=== PATIENT | male | born 1930 | race Two or more races ===

== ENCOUNTER 2017-05-10 14:25 | Inpatient (IN) | payer OTHER, MEDICARE ==
[2017-05-10] VITALS (7 sets, daily range): BP systolic 74–106; BP diastolic 47–67
[~2017-05-10] VITALS: Ht 149.9 cm; Wt 57.8 kg
[~2017-05-10 14:25] MED LIST: ACETAMINOPHEN650 M7 PO; ADULT LOW DOSE81 MG PO; ADVAIR HFA 45-218 GM IH; ALEVE220 M2 PO; ALEVE220 MG PO; ALLERGY ME12.5 MG/1 PO; AMBIEN10 M1 PO; ANALGESIC BALM28 GM PO; ANTIFUNGAL CRE141 GM TP; ASMANEX TW200 MICRO1 IH; ASPIR 8181 M1 PO; ASPIRIN E.C.81 M1 PO; ATACAND16 MG PO; ATACAND32 MG PO; ATACAND8 MG PO; Aldactone PO; Aspirin E.C. PO; CALCIUM ANTAC1000 MG PO; CALCIUM600 MG PO; CATAPRES0.1 MG PO; CENTRUM CARD1 TABLET PO; CENTRUM MEN'S1 EACH PO; CENTRUM MULTIV1 EACH PO; CHERATUSSIN AC473 ML PO; CORTISONE57 GM TP; COUMADIN,JANTOVE4 MG PO; COUMADIN4 MG PO; COUMADIN5 MG PO; CRESTOR5 MG PO; Catapres PO; Cortaid,Hytone 1% Cr TP; DIGOXIN250 MCG PO; EMS NITROSTAT0.4 M1 S; EMS NITROSTAT0.4 M1 SL; EMS NITROSTAT0.4 MG PO; FINASTERIDE5 MG PO; FISH OIL 1,0001 EAC7 PO; FISH OIL 1,0001 EACH PO; FISH OIL CONC1 EACH PO; FLONASE16 G1 BOTH NARES; FOLGARD1 TABLET PO; HYDROCHLOROTHIA25 MG PO; Hydrodiuril,Oretic,E PO; K-DUR20 MEQ PO; LANOXIN,DIGIT0.25 MG PO; LASIX10 MG PO; LASIX20 MG PO; LASIX20 MG/2 ML IV; LASIX40 MG PO; LIPITOR10 MG PO; LIPITOR5 MG PO; LO-DOSE ASPIRIN81 M1 PO; METAMUCIL PACKE1 PKT PO; METAMUCIL POWD822 G1 PO; METAMUCIL0.52 GM PO; METAMUCIL1 EACH PO; METOPROLOL SUC100 MG PO; Metamucil Capsule PO; Mitrazol 2% Cream TP; NEURONTIN100 MG PO; NEXIUM40 MG PO; NITROSTAT,NITR0.4 M1 SL; NITROSTAT0.4 MG SL; NORVASC2.5 MG PO; NORVASC5 MG PO; Omega III EPA + DHA PO; PREVACID30 MG PO; ROBITUSSIN AC,T10 ML PO; Robitussin AC,Tussi- PO; SINGULAIR10 MG PO; STOOL SOFTENER100 M1 PO; SYMBICORT60 INHALAT IH; TEKTURNA150 MG PO; TOPROL XL100 MG PO; TOPROL XL50 MG PO; TYLENOL 8 HOUR650 MG PO; TYLENOL325 M1 PO; Toprol XL PO; Tums,OsCal PO; VIRTUSSIN AC L473 ML PO; VITAMIN D2000 UNI1 PO; VITAMIN D31000 UNI2 PO; Vitamin D PO; WARFARIN PO; WARFARIN SODIUM5 MG PO; XOPENEX HF200 INHALA IH
[2017-05-10 15:14] LABS: HEMATOCRIT 19.2 % (38.0-50.0); MCHC 31.8 G/DL (30.0-36.0); MCV 91.4 FL (86-99); MEAN PLAT.VOLUME 10.9 uM^3 (9.0-12.4); PLATELET COUNT 199 K/uL (156-360); RBC DIS.WIDTH-CV 16.1 % (11.8-14.6); RBC DIS.WIDTH-SD 53.3 % (39-53); WHITE BLOOD COUNT 11.3 K/uL (4.1-10.2)
[2017-05-10 15:17] LABS: CHLORIDE 99 mEq/L (99-109); POTASSIUM 4.4 mEq/L (3.7-5.4); SODIUM 131 mEq/L (136-147)
[2017-05-10 15:19] LABS: GLUCOSE 139 mg/dL (70-99)
[2017-05-10 15:20] LABS: ANION GAP 15 MEQ/L (2-14)
[2017-05-10 15:23] LABS: GFR ESTIMATE (CALCULATED) 56 mL/min/ (58.99-99999)
[2017-05-10 15:24] LABS: UREA NITROGEN (BUN) 44 mg/dL (9-23)
[2017-05-10 15:29] LABS: TROP-I INTERPRETATION NEGATIVE; TROPONIN-I 0.08 ng/mL (0.0-0.30)
[2017-05-10 17:00] LABS: PTT 51.7 SEC (25-37)
[2017-05-10 17:04] LABS: PROTHROMBIN TIME 149.8 SEC (10.2-12.9)
[2017-05-10 17:05] LABS: INTER. NORMALIZED RATIO 13.1
[2017-05-10] MEDS ORDERED: METOPROLOL SUCC50 MG PO (18:37)
[2017-05-10] MEDS ORDERED: CODEINE-GUAIFE120 ML PO (18:39)
[2017-05-10] MEDS ORDERED: MONTELUKAST SOD10 MG PO (18:39)
[2017-05-10] MEDS ORDERED: WARFARIN SODIUM2 MG PO (18:39)
[2017-05-10] MEDS ORDERED: LEVOTHYROXINE25 MCG PO (18:40)
[2017-05-10] MEDS ORDERED: TORSEMIDE20 MG PO (18:41)
[2017-05-10 23:49] LABS: ADD MIUA? YES; BILIRUBIN NEGATIVE; BLOOD SMALL; COLOR YELLOW ((YELLOW)); GLUCOSE (STRIP) NEGATIVE; KETONES NEGATIVE; LEUKOCYTES NEGATIVE; NITRITE NEGATIVE; PROTEIN (STRIP) 30; SPECIFIC GRAVITY 1.012 (1.000-1.030); UROBILINOGEN 0.2 MG/DL (0.2-1.0)
[2017-05-11] VITALS (37 sets, daily range): BP systolic 56–135; BP diastolic 33–90
[2017-05-11 00:05] LABS: EPITHELIAL CELLS RARE /HPF; RED BLOOD CELLS 0-5 /HPF (0-5); WHITE BLOOD CELLS 0-5 /HPF (0-5)
[2017-05-11 00:06] LABS: BACTERIA NONE SEEN /HPF; HYALINE CASTS 15-20 /LPF; MUCUS TRACE /LPF; UCUL ADDED? NO
[2017-05-11 00:08] LABS: CREATININE 1.6 mg/dL (0.6-1.3)
[2017-05-11 00:31] LABS: TOTAL BILIRUBIN 1.2 mg/dL (0.0-1.0)
[2017-05-11 00:32] LABS: ALKALINE PHOSPHATASE 89 IU/L (3-129)
[2017-05-11 00:35] LABS: DIRECT BILIRUBIN 0.7 mg/dL (0.0-0.3)
[2017-05-11 02:32] LABS: HEMATOCRIT 24.5 % (38.0-50.0); MCH 30.9 PG (29.0-34.0); MCHC 32.2 G/DL (30.0-36.0); NRBC (%) 11.6 /100 WBC (0-0); RBC DIS.WIDTH-CV 15.8 % (11.8-14.6); RBC DIS.WIDTH-SD 54.4 % (39-53); WHITE BLOOD COUNT 9.6 K/uL (4.1-10.2)
[2017-05-11 02:37] LABS: MCV 95.7 FL (86-99); RED BLOOD COUNT 2.56 M/uL (4.00-5.50)
[2017-05-11 03:14] LABS: HEMATOCRIT 24.8 % (38.0-50.0); MCH 30.2 PG (29.0-34.0); MCHC 31.5 G/DL (30.0-36.0); MCV 96.1 FL (86-99); MEAN PLAT.VOLUME 10.9 uM^3 (9.0-12.4); NRBC (%) 14.8 /100 WBC (0-0); PLATELET COUNT 143 K/uL (156-360); RBC DIS.WIDTH-CV 15.8 % (11.8-14.6); RBC DIS.WIDTH-SD 54.3 % (39-53); RED BLOOD COUNT 2.58 M/uL (4.00-5.50); WHITE BLOOD COUNT 7.8 K/uL (4.1-10.2)
[2017-05-11 03:24] LABS: CHLORIDE 100 mEq/L (99-109); POTASSIUM 4.1 mEq/L (3.7-5.4); SODIUM 132 mEq/L (136-147)
[2017-05-11 03:25] LABS: MAGNESIUM 1.7 mg/dL (1.3-2.7)
[2017-05-11 03:27] LABS: CHLORIDE 101 mEq/L (99-109); INTER. NORMALIZED RATIO 3.8; POTASSIUM 4.1 mEq/L (3.7-5.4); PROTHROMBIN TIME 43.4 SEC (10.2-12.9); SODIUM 133 mEq/L (136-147)
[2017-05-11 03:28] LABS: ANION GAP 22 MEQ/L (2-14)
[2017-05-11 03:30] LABS: GFR ESTIMATE (CALCULATED) 44 mL/min/ (58.99-99999)
[2017-05-11 03:31] LABS: GLUCOSE 64 mg/dL (70-99); UREA NITROGEN (BUN) 45 mg/dL (9-23)
[2017-05-11 03:32] LABS: GFR ESTIMATE (CALCULATED) 47 mL/min/ (58.99-99999)
[2017-05-11 03:33] LABS: UREA NITROGEN (BUN) 44 mg/dL (9-23)
[2017-05-11 03:38] LABS: GLUCOSE 64 mg/dL (70-99)
[2017-05-11 03:42] LABS: EOSINOPHIL (%) 0.2 % (0-5); IMMATURE GRANULOCYTE (%) 1.9 % (0.0-0.7); IMMATURE GRANULOCYTE COUNT 0.2 K/uL; INSTRUMENT ABS NEUTROPHIL CT 8.9 K/uL; LYMPHOCYTE COUNT 0.1 K/uL (1.0-2.8); MEAN PLAT.VOLUME 10.9 uM^3 (9.0-12.4); MONOCYTE (%) 3.4 % (3-12); MONOCYTE COUNT 0.3 K/uL (0-0.8); NEUTROPHIL (%) 92.9 % (45-76); NEUTROPHIL COUNT 8.9 K/uL (1.8-6.4)
[2017-05-11 03:57] LABS: METH RESISTANT S AUREUS PCR NEGATIVE (NEGATIVE)
[2017-05-11 03:58] LABS: PROBE CHECK PASS; SPECIMEN PROCESSING CONTROL PASS
[2017-05-11 05:35] LABS: HEMATOCRIT 25.7 % (38.0-50.0); IMM.RETIC FRACTION 32.3 % (3-19); MCH 30.2 PG (29.0-34.0); MCHC 30.7 G/DL (30.0-36.0); MCV 98.1 FL (86-99); MEAN PLAT.VOLUME 11.2 uM^3 (9.0-12.4); PLATELET COUNT 153 K/uL (156-360); RBC DIS.WIDTH-CV 15.8 % (11.8-14.6); RBC DIS.WIDTH-SD 56.2 % (39-53); RED BLOOD COUNT 2.62 M/uL (4.00-5.50); RETIC HGB EQUIVALENT 20.8 (28-36); WHITE BLOOD COUNT 9.8 K/uL (4.1-10.2)
[2017-05-11 05:42] LABS: RETICULOCYTE COUNT 3.3 % (0.5-1.8)
[2017-05-11 05:42] LABS: PLATELET COUNT 130 K/uL (156-360)
[2017-05-11 05:59] LABS: TROP-I INTERPRETATION INDETERMINATE; TROPONIN-I 0.39 ng/mL (0.0-0.30)
[2017-05-11 06:12] LABS: INTER. NORMALIZED RATIO 2.6
[2017-05-11 06:14] LABS: PTT 41.3 SEC (25-37)
[2017-05-11 06:19] LABS: PROTHROMBIN TIME 29.4 SEC (10.2-12.9)
[2017-05-11 06:21] LABS: CREATINE KINASE 245 IU/L (1-294); IRON 21 MCG/DL (35-150); TOTAL CK 245 IU/L (1-294)
[2017-05-11 06:35] LABS: LACTATE DEHYDROGENASE 294 IU/L (20-246)
[2017-05-11 07:30] LABS: ABS NEUTROPHIL COUNT 8.3; ANISOCYTOSIS 1+; BAND NEUTROPHILS 13.9 % (0-8.0); BURR CELLS 2+; EOSINOPHIL ABS CT 0; GIANT PLATELETS 1+; HYPOCHROMASIA 1+; INSTRUMENT ABS NEUTROPHIL CT 9.2 K/uL; LYMPHOCYTES 2.6 % (15.0-45.0); MACROCYTES 1+; METAMYELOCYTES 9.6 %; MICROCYTOSIS 1+; MYELOCYTES 0.9 %; NUCLEATED RBC'S 26.1; OVALOCYTES 1+; PLAT.SUFFICIENCY ADEQUATE; POIKILOCYTOSIS 2+; POLYCHROMASIA 1+; SEG.NEUTROPHILS 71.3 % (46.0-76.0); SPHEROCYTES 1+; TOX.VACUOLIZATION 2+
[2017-05-11 07:54] LABS: FERRITIN 50 NG/ML (22-322)
[2017-05-11 08:29] LABS: CK-MB 7.3 ng/mL (0.0-4.9)
[2017-05-11 10:22] LABS: CARBOXY HGB 1.7 % (0-5); METHEMOGLOBIN 1.6 % (0-1.5); PCO2 36 mm Hg (35-45); PO2 86 mm Hg (80-100)
[2017-05-11 10:23] LABS: COMMENTS - BLOOD GASES A+C+; DEVICE 980 PB; FI02 80 %; MECHANICAL RATE 16 resp/min; MODE AC; SITE LR; TIDAL VOLUME 450 ML; TOTAL RESP RATE 16 resp/min; pH 7.13 (7.35-7.45)
[2017-05-11 10:24] LABS: PEEP 5 CM/H20
[2017-05-11 11:34] LABS: HEMATOCRIT 28.7 % (38.0-50.0); MCH 30.4 PG (29.0-34.0); MCHC 30.7 G/DL (30.0-36.0); MCV 99.3 FL (86-99); NRBC (%) 9.8 /100 WBC (0-0); RBC DIS.WIDTH-CV 15.6 % (11.8-14.6); RBC DIS.WIDTH-SD 56.3 % (39-53); RED BLOOD COUNT 2.89 M/uL (4.00-5.50); WHITE BLOOD COUNT 15.8 K/uL (4.1-10.2)
[2017-05-11 11:38] LABS: INTER. NORMALIZED RATIO 2.6; PROTHROMBIN TIME 29.5 SEC (10.2-12.9)
[2017-05-11 12:02] LABS: ABS NEUTROPHIL COUNT 14.2; ALKALINE PHOSPHATASE 70 IU/L (3-129); ANION GAP 23 MEQ/L (2-14); ANISOCYTOSIS 1+; BURR CELLS 2+; CHLORIDE 103 MEQ/L (99-109); EOSINOPHIL ABS CT 0; GFR ESTIMATE (CALCULATED) 36 mL/min/ (58.99-99999); HYPOCHROMASIA 1+; MACROCYTES 1+; MEAN PLAT.VOLUME 11.5 uM^3 (9.0-12.4); METAMYELOCYTES 9.5 %; NUCLEATED RBC'S 13.9; PLAT.SUFFICIENCY DECREASED; PLATELET COUNT 120 K/uL (156-360); POIKILOCYTOSIS 3+; POLYCHROMASIA 2+; POTASSIUM 4.3 MEQ/L (3.7-5.4); SAMPLE HEMOLYSIS CHECK 0; SAMPLE ICTERIC CHECK 0; SAMPLE LIPEMIA CHECK 0; SEG.NEUTROPHILS 69.6 % (46.0-76.0); SODIUM 138 MEQ/L (136-147); SPHEROCYTES 1+; TOTAL BILIRUBIN 2.5 MG/DL (0.0-1.0); UREA NITROGEN (BUN) 44 mg/dL (9-23)
[2017-05-11 12:06] LABS: GLUCOSE < 10 mg/dL (70-99)
[2017-05-11 12:36] LABS: POINT-OF-CARE METER ID UU14174217
[2017-05-11 15:51] LABS: POINT-OF-CARE METER ID UU14174217
[2017-05-11 16:51] LABS: POINT-OF-CARE METER ID UU14174217
[2017-05-11 18:01] LABS: HEMATOCRIT 30.6 % (38.0-50.0); MCH 31.5 PG (29.0-34.0); MCV 101.3 FL (86-99); MEAN PLAT.VOLUME 11.4 uM^3 (9.0-12.4); NRBC (%) 8.5 /100 WBC (0-0); PLATELET COUNT 120 K/uL (156-360); RBC DIS.WIDTH-SD 59.6 % (39-53); RED BLOOD COUNT 3.02 M/uL (4.00-5.50); WHITE BLOOD COUNT 19.1 K/uL (4.1-10.2)
[2017-05-11 18:34] LABS: ABS NEUTROPHIL COUNT 13.6; ANISOCYTOSIS 1+; BAND NEUTROPHILS 6.1 % (0-8.0); EOSINOPHIL ABS CT 0; GIANT PLATELETS 1+; HYPOCHROMASIA 1+; LYMPHOCYTES 1.8 % (15.0-45.0); METAMYELOCYTES 7.9 %; MYELOCYTES 13.2 %; NUCLEATED RBC'S 11.4; PLAT.SUFFICIENCY ADEQUATE; POIKILOCYTOSIS 3+; POLYCHROMASIA 1+; SEG.NEUTROPHILS 64.9 % (46.0-76.0); SMUDGE CELLS 5.3; TOX.VACUOLIZATION 3+
[2017-05-11 20:17] LABS: POINT-OF-CARE METER ID UU14174217; POINT-OF-CARE USER ID RADDRS44
[2017-05-11 20:28] LABS: HEMATOCRIT 32.5 % (38.0-50.0); MCH 30.5 PG (29.0-34.0); MCHC 30.2 G/DL (30.0-36.0); MCV 101.2 FL (86-99); MEAN PLAT.VOLUME 11.4 uM^3 (9.0-12.4); NRBC (%) 9.9 /100 WBC (0-0); PLATELET COUNT 125 K/uL (156-360); RBC DIS.WIDTH-CV 15.9 % (11.8-14.6); RBC DIS.WIDTH-SD 59.3 % (39-53); RED BLOOD COUNT 3.21 M/uL (4.00-5.50); WHITE BLOOD COUNT 21.3 K/uL (4.1-10.2)
[2017-05-11 20:58] LABS: ABS NEUTROPHIL COUNT 14.4; ANISOCYTOSIS 1+; ATYPICAL LYMPHOCYTE 1.8 %; BAND NEUTROPHILS 10.6 % (0-8.0); BASOPHILS 0.5 %; EOSINOPHIL ABS CT 0; INSTRUMENT ABS NEUTROPHIL CT 10.4 K/uL; LYMPHOCYTES 0.4 % (15.0-45.0); MACROCYTES 1+; MEGAKARYOCYTE 0.4; METAMYELOCYTES 10.1 %; MYELOCYTES 11.5 %; PLAT.SUFFICIENCY DECREASED; POIKILOCYTOSIS 3+; SEG.NEUTROPHILS 57.2 % (46.0-76.0); TOX.VACUOLIZATION 3+
[2017-05-11 21:01] LABS: AMYLASE 178 IU/L (1-118); ANION GAP 22 MEQ/L (2-14); CHLORIDE 101 MEQ/L (99-109); GFR ESTIMATE (CALCULATED) 34 mL/min/ (58.99-99999); POTASSIUM 4.7 MEQ/L (3.7-5.4); SAMPLE HEMOLYSIS CHECK 0; SAMPLE ICTERIC CHECK 0; SAMPLE LIPEMIA CHECK 0; SODIUM 137 MEQ/L (136-147); UREA NITROGEN (BUN) 43 mg/dL (9-23)
[2017-05-11 21:02] LABS: GLUCOSE 69 mg/dL (70-99)
[2017-05-12] VITALS: BP 45/39
[2017-05-12 00:32] LABS: BASE EXCESS -16.8 mEq/L (-3 to +3); CARBOXY HGB 1.7 % (0-5); COMMENTS - BLOOD GASES C+; DEVICE 980; FI02 100 %; MECHANICAL RATE 16 resp/min; METHEMOGLOBIN 1.9 % (0-1.5); MODE AC; PCO2 48 mm Hg (35-45); PO2 50 mm Hg (80-100); SITE A-LINE; TIDAL VOLUME 450 ML; TOTAL RESP RATE 16 resp/min
[2017-05-12 00:33] LABS: PEEP 5 CM/H20; pH 7.04 (7.35-7.45)
[2017-05-12 01:00] VITALS: BP 62/43
[2017-05-12 01:03] LABS: POINT-OF-CARE METER ID UU14174217; POINT-OF-CARE USER ID RADDRS44
[2017-05-12 09:33] LABS: POINT-OF-CARE METER ID UU14174217
== END 2017-05-12 03:47 | DRG 871 ==
LOC: EME 14:25 → EDOF 22:41 → ENRESERV 22:43 → EDOF 05-11 00:29 → ENRESERV 05-11 00:30 → 4WEST 05-11 02:29
PROVIDERS: Emergency Medicine; Hospitalist; Internal Medicine; Internal Medicine Nephrology; Specialist
PROC: 0T9B70Z Drainage of Bladder with Drainage Device, Via Natural or Artificial Opening (ICD-10-PCS; principal; 2017-05-10)
PROC: 04HK33Z Insertion of Infusion Device into Right Femoral Artery, Percutaneous Approach (ICD-10-PCS; principal; 2017-05-10)
PROC: 30233K1 Transfusion of Nonautologous Frozen Plasma into Peripheral Vein, Percutaneous Approach (ICD-10-PCS; principal; 2017-05-10)
PROC: 30233N1 Transfusion of Nonautologous Red Blood Cells into Peripheral Vein, Percutaneous Approach (ICD-10-PCS; principal; 2017-05-10)
PROC: 5A1935Z Respiratory Ventilation, Less than 24 Consecutive Hours (ICD-10-PCS; 2017-05-11)
PROC: 0BH17EZ Insertion of Endotracheal Airway into Trachea, Via Natural or Artificial Opening (ICD-10-PCS; 2017-05-11)
PROC: 5A12012 Performance of Cardiac Output, Single, Manual (ICD-10-PCS; 2017-05-12)
PROC: 04HY32Z Insertion of Monitoring Device into Lower Artery, Percutaneous Approach (ICD-10-PCS; 2017-05-12)
DX: A40.9 Streptococcal sepsis, unspecified (principal); R65.21 Severe sepsis with septic shock; J15.4 Pneumonia due to other streptococci; G00.2 Streptococcal meningitis; B95.5 Unspecified streptococcus as the cause of diseases classified elsewhere; J96.00 Acute respiratory failure, unspecified whether with hypoxia or hypercapnia; N17.0 Acute kidney failure with tubular necrosis; D62 Acute posthemorrhagic anemia; I48.1 Persistent atrial fibrillation; C90.00 Multiple myeloma not having achieved remission; E87.2 Acidosis; E87.1 Hypo-osmolality and hyponatremia; I48.2 Chronic atrial fibrillation; I11.0 Hypertensive heart disease with heart failure; I50.810 Right heart failure, unspecified; I27.20 Pulmonary hypertension, unspecified; I71.2 Thoracic aortic aneurysm, without rupture; E86.0 Dehydration; R79.1 Abnormal coagulation profile; T45.515A Adverse effect of anticoagulants, initial encounter; S30.1XXA Contusion of abdominal wall, initial encounter; W19.XXXA Unspecified fall, initial encounter; Y92.002 Bathroom of unspecified non-institutional (private) residence as the place of occurrence of the external cause; M25.511 Pain in right shoulder; M19.011 Primary osteoarthritis, right shoulder; I25.10 Atherosclerotic heart disease of native coronary artery without angina pectoris; I34.0 Nonrheumatic mitral (valve) insufficiency; E78.5 Hyperlipidemia, unspecified; D63.0 Anemia in neoplastic disease; J45.909 Unspecified asthma, uncomplicated; I25.2 Old myocardial infarction; E03.9 Hypothyroidism, unspecified; K92.1 Melena; I44.7 Left bundle-branch block, unspecified; M75.101 Unspecified rotator cuff tear or rupture of right shoulder, not specified as traumatic; N28.9 Disorder of kidney and ureter, unspecified; N47.1 Phimosis; E16.2 Hypoglycemia, unspecified; Z95.1 Presence of aortocoronary bypass graft; Z95.3 Presence of xenogenic heart valve; Z85.46 Personal history of malignant neoplasm of prostate; Z88.0 Allergy status to penicillin; Z82.3 Family history of stroke
CPT/HCPCS: 36600; 70450; 71010; 71020; 71250; 72125; 73030; 73060; 74020; 74176; 80047; 80048; 80048 91; 80053; 80076; 81003; 82150; 82272; 82550; 82553; 82607; 82728; 82746; 82803; 82948; 83010 90; 83540; 83605; 83615; 83735; 84100; 84145 90; 84466; 84484; 85025; 85025 91; 85027; 85610; 85730; 86850; 86900; 86901; 86920; 87040; 87070; 87077; 87186; 87205; 87641; 87801; 93005; 94002; 94003; 94644; 94799; 99281; 99285; C1751; C9113; J0282; J0461; J0610; J0696; J1265; J1940; J1956; J2354; J2704; J3370; J3430; J7030; J7040; J7050; J7070; P9016; P9017